=== PATIENT | male | born 1995 | race Caucasian/White ===

== ENCOUNTER 2018-08-21 20:13 | Emergency (ER) | payer OTHER, SELFPAY ==
[2018-08-21 20:20] VITALS: BP 165/76; PULSE 113; RESP 16; TEMP 36.6; O2SAT 100
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
[2018-08-21 20:50] LABS: Abs Immature Grans 0.01 k/cumm (0.0-0.09); Absolute Basophil Count 0.04 k/cumm (0.0-0.2); Absolute Eosinophil Count 0.07 k/cumm (0.0-0.7); Absolute Lymphocyte Count 2.05 k/cumm (1.2-3.4); Absolute Neutrophil Count 5.28 k/cumm (1.2-6.7); Basophils % 0.5; Eosinophils % 0.8; HCT 40.9 % (40.0-50.0); HGB 14.1 g/dL (13.5-17.5); Immature Grans % 0.1; Lymphocytes % 24.6; Mean Corp. HGB Concentration 34.5 g/dL (32.0-36.0); Mean Corpuscular Hemoglobin 28.2 pg (27.0-33.0); Mean Corpuscular Volume 81.8 fL (80-95); Mean Platelet Volume 9.7 fL (8.0-11.0); Monocytes % 10.8; Neutrophils % 63.2; Platelet Count 205 x1000/uL (130-400); RBC Distribution Width 13.5 % (11.8-14.1); White Blood Cell Count 8.35 k/cumm (4.4-10.8)
[2018-08-21] MEDS: Omnipaque 350 MG/ML 100 ML BTL IJ (21:01)
[2018-08-21 21:07] LABS: INR 1.1 (1.0-3.5); PTT Activated 22.7 sec (21.0-31.4); Prothrombin Time 10.5 sec (9.3-11.0)
[2018-08-21 21:14] LABS: ALT 31 U/L (12-78); AST 25 U/L (15-37); Albumin 4.1 g/dL (3.4-5.0); Alkaline Phosphatase 100 U/L (46-116); Anion Gap 15.8 mmol/L (3-11); BUN 18 mg/dL (7-18); Bilirubin, Total 1.2 mg/dL (0.2-1.0); CO2 24.2 mmol/L (21.0-32.0); CREATININE 0.83 mg/dL (0.70-1.30); Calcium 9.4 mg/dL (8.5-10.1); Chloride 102 mmol/L (98-107); Glucose 117 mg/dL (70-100); Lipase 68 U/L (73-393); Potassium 3.2 mmol/L (3.5-5.1); Sodium 142 mmol/L (136-145); Total Protein 7.2 g/dL (6.4-8.2)
[2018-08-21] MEDS: Normal Saline 1,000 ML 1000 ML IV (21:18)
[2018-08-21] MEDS: fentaNYL 100 MCG/2 ML VIAL 50 MCG IVP (21:18)
[2018-08-21 21:22] VITALS: BP 148/65; PULSE 94; RESP 16; O2SAT 99
[2018-08-21 21:27] LABS: Troponin I < 0.02 ng/mL (0.00-0.06)
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
[2018-08-21 22:03] VITALS: BP 125/65; PULSE 87; RESP 16; O2SAT 100
== END 2018-08-21 22:27 | disposition home or self-care (01) ==
PROVIDERS: Emergency Provider Physician Assistant; PCP Family Medicine
DX: M54.2 Cervicalgia (principal); V43.52XA Car driver injured in collision with other type car in traffic accident, initial encounter
CPT/HCPCS: 74177; 80053; 83690; 96361; 96374; 99285; 70450; 71260; 72125; 83735; 84484; 85025; 85610; 85730; 99284; J3010; J3490